=== PATIENT | male | born 1990 | race American Indian/Alaskan Native ===

== ENCOUNTER 2016-09-04 13:04 | Emergency (ER) | payer MEDICAID, OTHER ==
[2016-09-04 13:19] VITALS: TEMP 98.3; BMI 23.1
[2016-09-04] MEDS ORDERED: Naproxen 550 mg Tab PO STA (13:30)
[2016-09-04] MEDS ORDERED: TDAP Vaccine 0.5 mL Syr IM ONE (13:44)
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
--- NOTE | 2016-09-04 16:11 | RAD ---
PROCEDURE: Radiographs of the Sacrum and Coccyx HISTORY: fall COMPARISON: None available. TECHNIQUE: Frontal and lateral views of the sacrum and coccyx FINDINGS: BONES: Sacrum and coccyx unremarkable. No fracture or focal lesion. SACROILIAC JOINTS: Unremarkable. OTHER FINDINGS: None. IMPRESSION: Unremarkable radiographs of the sacrum and coccyx.
[2016-09-04 16:24] VITALS: BP 120/70; PULSE 76; RESP 16; O2SAT 98
== END 2016-09-04 16:24 | disposition home or self-care (01) ==
LOC: ED 13:04
DX: M54.5 Low back pain (principal); Z23 Encounter for immunization